=== PATIENT | male | born 1995 | race Hispanic/Latino ===

== ENCOUNTER 2021-05-16 21:59 | Emergency (ER) | payer SELFPAY | END 2021-05-16 23:25 | disposition home or self-care (01) | LOC: MADERS 21:59 | DX: S60.021A Contusion of right index finger without damage to nail, initial encounter (principal); S60.031A Contusion of right middle finger without damage to nail, initial encounter; S60.041A Contusion of right ring finger without damage to nail, initial encounter; W22.8XXA Striking against or struck by other objects, initial encounter ==